=== PATIENT | male | born 1985 | race Two or more races ===

== ENCOUNTER 2020-04-19 19:57 | Emergency (ER) | payer SELFPAY ==
[~2020-04-19] VITALS: Ht 177.8 cm; Wt 74.8 kg
[2020-04-19] MEDS ORDERED: BACITRACIN TOP OINT 1 UD PKG TOP ONE (22:15)
[2020-04-19] MEDS ORDERED: LIDOCAINE 1% HCL (LOCAL ANESTH.) INJ 20ML MDV ID ONE (22:15)
[2020-04-19 22:23] VITALS: BP 130/88
[2020-04-19] MEDS ORDERED: cefTRIAXone SOD 1,000 MG VL IM ONE (22:45)
== END 2020-04-19 23:12 | disposition home or self-care (01) ==
LOC: ER 19:58
DX: S61.411A Laceration without foreign body of right hand, initial encounter (principal); W26.8XXA Contact with other sharp object(s), not elsewhere classified, initial encounter; Y93.89 Activity, other specified; Y92.89 Other specified places as the place of occurrence of the external cause; Y99.8 Other external cause status
CPT/HCPCS: 12002; 73130; 96372; 99283; J0696; J2001